=== PATIENT | male | born 1950 | race Caucasian/White ===

== ENCOUNTER 2018-06-15 07:42 | Day surgery (SDC) | payer MEDICARE, OTHER ==
[~2018-06-15] VITALS: Ht 180.3 cm; Wt 125.0 kg
[2018-06-15] VITALS (9 sets, daily range): BP systolic 121–148; BP diastolic 82–104; PULSE 63–100; TEMP 98
[2018-06-15] MEDS ORDERED: XARELTO20 MG PO (08:08)
[2018-06-15] MEDS ORDERED: TOPROL XL 50MG50 MG PO (08:09)
[2018-06-15] MEDS ORDERED: TOPROL XL 25MG25 MG PO (08:10)
[2018-06-15] MEDS ORDERED: LIPITOR20 MG PO (08:10)
[2018-06-15] MEDS ORDERED: ZESTRIL40 MG PO (08:10)
[2018-06-15] MEDS ORDERED: PROSVENT PO (08:12)
[2018-06-15 08:28] LABS: HEMATOCRIT 42.7 % (42.0-52.0); HEMOGLOBIN 14.3 g/dl (13.5-18.0); MEAN CELL VOLUME 86 fl (80.0-100.0); MEAN CORPUSCULAR HEMOGLOBIN 29 pg (27.0-31.0); MEAN CORPUSCULAR HGB CONC 34 g/dl (33.0-37.0); MEAN PLATELET VOLUME 10.1 fl (7.4-10.4); PLATELET COUNT 276 K/mm3 (130-400); RED BLOOD COUNT 4.96 M/mm3 (4.20-5.60); REDCELL DISTRIBUTION WIDTH-CV 14.3 % (11.5-14.5)
[2018-06-15 08:33] LABS: PROTHROMBIN TIME 11.6 SECONDS (9.7-12.8)
[2018-06-15 08:39] LABS: CALCIUM 8.9 mg/dL (8.4-10.2); CREATININE, serum 0.96 (0.66-1.25); POTASSIUM 4.3 mmol/L (3.4-5.0)
--- NOTE | 2018-06-15 09:38 | NUR ---
SEE MERE[facility] FOR MEDICATION ADMIN. TIMES AND INTRA AND POST SEDATION ASSESSMENT.
[2018-06-15] MEDS ORDERED: LIPITOR 40MG TA40 MG PO (10:07)
[2018-06-15] MEDS ORDERED: ASPIRIN 81M81 MG/TA2 PO (10:09)
[2018-06-15] MEDS ORDERED: COREG12.5 MG PO (10:09)
[2018-06-15] MEDS ORDERED: HCTZ12.5TAB PO (10:10)
--- NOTE | 2018-06-15 10:22 | NUR ---
Back from [employer]. Alert and oriented. Right radial Tband with 12 cc air CD&I with good pulses and cap refill <3 secs. Ordering breakfast. Spouse bedside
--- NOTE | 2018-06-15 12:40 | NUR ---
Deflated all air out Tband on right wrist. No bleeding noted. PRessure dressing applied. INT to right AC discontinued intact. Discharge instructions given.
--- NOTE | 2018-06-15 13:10 | NUR ---
PT TAKEN VIA WHEELCHAIR TO PT'S VEHICLE. FAMILY AT BEDSIDE. PT TOLERATED WELL. PT AMBULATED TO WHEELCHAIR AND TO VEHICLE WITHOUT DIFFICULTY.
== END 2018-06-15 13:10 | disposition home or self-care (01) ==
LOC: COL.CAR 07:42
PROVIDERS: Internal Medicine Cardiovascular Disease
DX: I25.10 Atherosclerotic heart disease of native coronary artery without angina pectoris (principal); R94.39 Abnormal result of other cardiovascular function study; E66.9 Obesity, unspecified; I10 Essential (primary) hypertension; E78.5 Hyperlipidemia, unspecified; I48.91 Unspecified atrial fibrillation; Z79.01 Long term (current) use of anticoagulants; Z79.82 Long term (current) use of aspirin; Z82.49 Family history of ischemic heart disease and other diseases of the circulatory system; Z83.3 Family history of diabetes mellitus; Z87.891 Personal history of nicotine dependence; Z88.5 Allergy status to narcotic agent; Z88.0 Allergy status to penicillin
CPT/HCPCS: J1644; J2250; J3010; Q9967

== ENCOUNTER 2019-01-09 10:19 | Day surgery (SDC) | payer MEDICARE, OTHER ==
[~2019-01-09] VITALS: Ht 180.3 cm; Wt 120.0 kg
[~2019-01-09 10:19] MED LIST: ASPIRIN 81M81 MG/TA2 PO; COREG12.5 MG PO; HCTZ12.5TAB PO; LIPITOR 40MG TA40 MG PO; LIPITOR20 MG PO; PROSVENT PO; TOPROL XL 25MG25 MG PO; TOPROL XL 50MG50 MG PO; XARELTO20 MG PO; ZESTRIL40 MG PO
[2019-01-09 10:41] VITALS: BP 121/89; PULSE 93; TEMP 97.9
[2019-01-09] MEDS ORDERED: COREG 25MG25 MG/TAB PO (10:52)
[2019-01-09 11:28] LABS: INR 1.4 (0.8-3.0); PROTHROMBIN TIME 16.8 SECONDS (9.7-12.8)
[2019-01-09 11:50] LABS: THYROID STIMULATING HORMONE 0.882 uIU/mL (0.465-4.680)
[2019-01-09 13:00] VITALS: BP 98/80; PULSE 80
--- NOTE | 2019-01-09 13:00 | NUR ---
Report from Antonio RN, pt sitting up in bed, in room, Dr Grajeda also visiting with pt. EKG done, pt con't to be in a-fib after 2 shocks
[2019-01-09 13:15] VITALS: BP 110/80; PULSE 77
[2019-01-09 13:30] VITALS: BP 99/70; PULSE 78
--- NOTE | 2019-01-09 13:30 | NUR ---
pt sits on side of bed, reviewed discharge inst. with pt and . pt has followup appt in 2 weeks at office to discuss further options. reiviewed with pt activity, precautions and med list with verbal understanding.
[2019-01-09 13:45] VITALS: BP 102/81; PULSE 80
--- NOTE | 2019-01-09 14:00 | NUR ---
pt up in room, iv d'cd intact. pt dressed, discharged via w/c to car with
== END 2019-01-09 14:00 ==
LOC: COL.CAR 10:19
PROVIDERS: Internal Medicine Cardiovascular Disease
DX: I48.19 Other persistent atrial fibrillation (principal); I10 Essential (primary) hypertension; R53.83 Other fatigue; I25.10 Atherosclerotic heart disease of native coronary artery without angina pectoris; Z82.49 Family history of ischemic heart disease and other diseases of the circulatory system; Z79.82 Long term (current) use of aspirin; Z79.01 Long term (current) use of anticoagulants; Z83.3 Family history of diabetes mellitus; Z88.5 Allergy status to narcotic agent; Z88.0 Allergy status to penicillin; Z87.891 Personal history of nicotine dependence
CPT/HCPCS: J2704; J7030

== ENCOUNTER 2019-03-06 09:48 | Day surgery (SDC) | payer MEDICARE, BC ==
[~2019-03-06] VITALS: Ht 180.3 cm; Wt 123.4 kg
[2019-03-06] VITALS (7 sets, daily range): BP systolic 94–167; BP diastolic 74–90; PULSE 56–78
[~2019-03-06 09:48] MED LIST changes: +COREG 25MG25 MG/TAB PO; +ZESTRIL30 MG PO; -ZESTRIL40 MG PO
[2019-03-06] MEDS ORDERED: MULTI VITAMINS1 TAB PO (10:14)
[2019-03-06] MEDS ORDERED: CORDARONE200 MG/TAB PO (10:15)
[2019-03-06] MEDS ORDERED: ASPIRIN E.C. 8181 MG PO (10:15)
[2019-03-06] MEDS ORDERED: HCTZ12.5TAB PO (10:16)
[2019-03-06 10:43] LABS: INR 2.1 (0.8-3.0); PROTHROMBIN TIME 24.8 SECONDS (9.7-12.8)
[2019-03-06 10:48] LABS: POTASSIUM 4.1 mmol/L (3.4-5.0)
[2019-03-06 11:23] LABS: THYROID STIMULATING HORMONE 1.83 uIU/mL (0.465-4.680)
--- NOTE | 2019-03-06 13:05 | NUR ---
PT escorted to exit at this time. pt has remained in sinus rhythm 50's-60's, reports feeling good. dc/fu/rx instructions were discussed with pt, he denies any questions at this time. saline lock to rac was dc'd, cath intact, dressing was applied.
== END 2019-03-06 14:05 | disposition home or self-care (01) ==
LOC: COL.CAR 09:48
PROVIDERS: Internal Medicine Cardiovascular Disease
DX: I48.19 Other persistent atrial fibrillation (principal); I25.10 Atherosclerotic heart disease of native coronary artery without angina pectoris; I10 Essential (primary) hypertension; E78.5 Hyperlipidemia, unspecified; Z79.01 Long term (current) use of anticoagulants; Z79.82 Long term (current) use of aspirin; Z83.3 Family history of diabetes mellitus; Z82.49 Family history of ischemic heart disease and other diseases of the circulatory system; Z87.891 Personal history of nicotine dependence; Z88.5 Allergy status to narcotic agent; Z88.0 Allergy status to penicillin
CPT/HCPCS: J2704; J7030